=== PATIENT | female | born 1985 | race Caucasian/White ===

== ENCOUNTER 2017-04-26 10:28 | Emergency (ER) | payer BC ==
[~2017-04-26] VITALS: Ht 162.6 cm; Wt 60.5 kg
[2017-04-26] MEDS ORDERED: INDOCIN50 MG PO (12:12)
[2017-04-26] MEDS ORDERED: VALIUM5 MG PO (12:12)
[2017-04-26] MEDS ORDERED: ULTRACET1 TABLET PO (12:12)
[2017-04-26 12:57] VITALS: BP 133/86
== END 2017-04-26 12:58 | disposition home or self-care (01) ==
LOC: EME 10:28
DX: M62.838 Other muscle spasm (principal); M54.12 Radiculopathy, cervical region
CPT/HCPCS: 73030; 73060; 99281; 99283; J3010